=== PATIENT | male | born 1960 | race Caucasian/White ===

== ENCOUNTER 2021-05-28 11:56 | Outpatient (CLI) | payer BC, SELFPAY ==
[2021-05-28 12:17] LABS: Basophils Absolute Auto 0.07 K/mm3 (0.00-0.10); Basophils Percent Auto 0.9 % (0.0-1.0); Eosinophils Absolute Auto 0.31 K/mm3 (0.02-0.50); Eosinophils Percent Auto 4.1 % (1.0-6.0); Hematocrit 42.1 % (40.0-54.0); Immature Granulocyte Absolute 0.02 K/mm3 (0.00-0.00); Immature Granulocyte Percent A 0.3 % (0.0-0.0); Lymphocytes Percent Auto 34.1 % (18.0-42.0); Mean Corpuscular HGB Conc 35.6 g/dL (32.0-36.0); Mean Corpuscular Hemoglobin 31.8 pg (27.0-31.0); Mean Corpuscular Volume 89.4 fL (78.0-102.0); Mean Platelet Volume 9.7 fl (8.7-11.0); Monocytes Percent Auto 7.9 % (2.0-11.0); Neutrophils Percent Auto 52.7 % (50.0-70.0); Platelet Count Result 224 K/mm3 (150-420); Red Blood Count 4.71 M/mm3 (4.70-6.10); Red Cell Distribution Width 11.8 % (11.6-14.4); White Blood Count 7.6 K/mm3 (4.8-10.8)
[2021-05-28 12:25] LABS: Creatinine Urine 229.24 mg/dL (40-278); MALB Creatinine Ratio 5.6 mg/g (0-30); Microalbumin Urine Random < 13.0 mg/L
[2021-05-28 12:27] LABS: Hemoglobin A1C 9.4 % (<5.7)
[2021-05-28 13:35] LABS: Alanine Aminotransferase 101 U/L (16-63); Albumin Level 3.9 g/dL (3.4-5.0); Alkaline Phosphatase 71 U/L (46-116); Anion Gap 13 mmol/L (8-16); Aspartate Amino Transferase 51 U/L (15-37); Bilirubin,Total 1.4 mg/dL (0.00-1.00); Blood Urea Nitrogen 24 mg/dL (7-18); Calcium 9.2 mg/dL (8.5-10.1); Carbon Dioxide 26 mmol/L (21-32); Chloride 100 mmol/L (98-108); Estimated Glomerular Filt Rate 55; Glucose 228 mg/dL (70-99); Osmolality Calculated 299 mOsm/kg (285-295); Potassium 3.4 mmol/L (3.5-5.1); Sodium 139 mmol/L (136-145); Total Protein 7.6 g/dL (6.4-8.2)
[2021-05-28 13:54] LABS: Thyroid Stimulating Hormone Reflex 11.31 u/IU/mL (0.36-3.74)
[2021-05-31 20:28] LABS: C-Peptide 4.34 ng/mL (0.80-3.85)
[2021-06-07 22:47] LABS: Islet Cell Antibody Screen NEGATIVE (NEGATIVE)
== END 2021-05-28 11:57 | disposition home or self-care (01) ==
LOC: CHSLAB 12:04
PROVIDERS: PCP Physician Assistant
DX: E11.65 Type 2 diabetes mellitus with hyperglycemia (principal)
CPT/HCPCS: 36415; 80053; 82043; 83036; 84439; 84443; 84681; 85025; 86341

== ENCOUNTER 2021-07-30 10:05 | Outpatient (CLI) | payer BC, SELFPAY ==
[2021-07-30 11:03] LABS: Thyroid Stimulating Hormone Reflex 1.74 u/IU/mL (0.36-3.74)
== END 2021-07-30 10:06 | disposition home or self-care (01) ==
LOC: CHSLAB 10:08
PROVIDERS: PCP Physician Assistant
DX: E03.9 Hypothyroidism, unspecified (principal)
CPT/HCPCS: 36415; 84443

== ENCOUNTER 2023-02-16 08:33 | Outpatient (CLI) | payer BC, SELFPAY ==
[2023-02-16 09:02] LABS: Creatinine Urine 115.69 mg/dL (40-278); MALB Creatinine Ratio 11.2 mg/g (0-30); Microalbumin Urine Random < 13.0 mg/L
[2023-02-16 09:29] LABS: Alanine Aminotransferase 44 U/L (16-63); Albumin Level 3.6 g/dL (3.4-5.0); Alkaline Phosphatase 90 U/L (46-116); Anion Gap 9 mmol/L (8-16); Aspartate Amino Transferase 28 U/L (15-37); Bilirubin,Total 1.2 mg/dL (0.00-1.00); Blood Urea Nitrogen 22 mg/dL (7-18); Calcium 9.1 mg/dL (8.5-10.1); Carbon Dioxide 31 mmol/L (21-32); Chloride 104 mmol/L (98-108); Cholesterol 137 mg/dL (0-200); Estimated Glomerular Filt Rate > 60; Glucose 125 mg/dL (70-99); HDL Direct 36 mg/dL (40-60); LDL Cholesterol Calculated 79 mg/dL (<130); Osmolality Calculated 302 mOsm/kg (285-295); Potassium 3.7 mmol/L (3.5-5.1); Sodium 144 mmol/L (136-145); Total Protein 7.3 g/dL (6.4-8.2); Triglycerides 110 mg/dL (0-150)
[2023-02-16 09:30] LABS: Thyroid Stimulating Hormone Reflex 1.72 u/IU/mL (0.36-3.74)
== END 2023-02-16 08:34 | disposition home or self-care (01) ==
LOC: CHSLAB 08:38
PROVIDERS: PCP Physician Assistant
DX: E03.9 Hypothyroidism, unspecified (principal); E11.69 Type 2 diabetes mellitus with other specified complication; E78.5 Hyperlipidemia, unspecified; E11.65 Type 2 diabetes mellitus with hyperglycemia
CPT/HCPCS: 36415; 80053; 80061; 82043; 84443

== ENCOUNTER 2024-02-07 15:00 | Outpatient (CLI) | payer BC, SELFPAY ==
[2024-02-07 15:29] LABS: Creatinine Urine 137.92 mg/dL (40-278); MALB Creatinine Ratio 9.4 mg/g (0-30); Microalbumin Urine Random < 13.0 mg/L
[2024-02-07 16:05] LABS: Alanine Aminotransferase 56 U/L (16-63); Albumin Level 3.9 g/dL (3.4-5.0); Alkaline Phosphatase 82 U/L (46-116); Anion Gap 11 mmol/L (8-16); Aspartate Amino Transferase 28 U/L (15-37); Bilirubin,Total 1.3 mg/dL (0.00-1.00); Blood Urea Nitrogen 21 mg/dL (7-18); Carbon Dioxide 29 mmol/L (21-32); Chloride 101 mmol/L (98-108); Cholesterol 158 mg/dL (0-200); Estimated Glomerular Filt Rate 55; Free T4 Free Thyroxine 0.91 ng/dL (0.76-1.46); Glucose 144 mg/dL (70-99); HDL Direct 38 mg/dL (40-60); LDL Cholesterol Calculated 59 mg/dL (<130); Osmolality Calculated 298 mOsm/kg (285-295); Potassium 3.6 mmol/L (3.5-5.1); Sodium 141 mmol/L (136-145); Thyroid Stimulating Hormone 3.16 uIU/mL (0.36-3.74); Total Protein 7.8 g/dL (6.4-8.2); Triglycerides 305 mg/dL (0-150)
== END 2024-02-07 15:01 | disposition home or self-care (01) ==
LOC: CHSLAB 15:04
PROVIDERS: PCP Physician Assistant; Visit Provider Nurse Practitioner
DX: E03.9 Hypothyroidism, unspecified (principal); E11.65 Type 2 diabetes mellitus with hyperglycemia
CPT/HCPCS: 36415; 80053; 80061; 82043; 84439; 84443